=== PATIENT | male | born 1970 | race Caucasian/White ===

== ENCOUNTER → 2017-06-10 | Outpatient (CLI) | payer OTHER ==
[~2017-06-10] MED LIST: ALDACTONE 25MG25 M1 PO; BACTRIM DS 8001 TAB PO; PREDNISONE20 MG PO; PRILOSEC 20MG20 MG PO; PRINIVIL10 MG PO; PRINIVIL20 MG PO; ZOFRAN8 MG PO; ZYLOPRIM 300MG300 MG PO
== END ==
LOC: COL.RAD 09:37
DX: C85.90 Non-Hodgkin lymphoma, unspecified, unspecified site (principal)
CPT/HCPCS: Q9967

== ENCOUNTER → 2017-09-09 | Outpatient (CLI) | payer OTHER | LOC: COL.RAD 08:24 | DX: I77.810 Thoracic aortic ectasia (principal); N28.89 Other specified disorders of kidney and ureter; Z98.890 Other specified postprocedural states | CPT/HCPCS: Q9967 ==

== ENCOUNTER 2018-07-19 18:58 | Emergency (ER) | payer OTHER ==
[~2018-07-19] VITALS: Ht 193 cm; Wt 113.6 kg
[2018-07-19 19:04] VITALS: TEMP 97.4
[2018-07-19 19:41] LABS: BASO % 0.4 % (0.0-2.0); EOS % 0.5 % (0-4.0); GRAN # 5.5 (1.4-6.5); GRAN % 69.8 % (42.2-75.2); HEMATOCRIT 43.9 % (42.0-52.0); HEMOGLOBIN 15.1 g/dl (13.5-18.0); LYMPH # 1.7 (1.2-3.4); LYMPH % 21.6 % (20.0-51.0); MEAN CELL VOLUME 84 fl (80.0-100.0); MEAN CORPUSCULAR HEMOGLOBIN 29 pg (27.0-31.0); MEAN CORPUSCULAR HGB CONC 34 g/dl (33.0-37.0); MEAN PLATELET VOLUME 9.6 fl (7.4-10.4); MONO # 0.6 (0.1-0.6); MONO % 7.6 % (1.7-9.3); PLATELET COUNT 198 K/mm3 (130-400); REDCELL DISTRIBUTION WIDTH-CV 13.2 % (11.5-14.5)
[2018-07-19 19:48] LABS: ALANINE AMINOTRANSFERASE 52 U/L (21-72); ALBUMIN 4.5 gm/dL (3.5-5.0); ALKALINE PHOSPHATASE 92 U/L (50-136); ANION GAP 15 mmol/L (7-16); AST,SGOT 33 U/L (15-37); BILIRUBIN,TOTAL 0.4 mg/dL (0.0-1.0); BLOOD UREA NITROGEN 21 mg/dL (9-20); CALCIUM 9.4 mg/dL (8.4-10.2); CARBON DIOXIDE 22 mmol/L (22-30); CHLORIDE 101 mmol/L (98-107); CREATININE, serum 1.36 mg/dL (0.66-1.25); GLUCOSE 90 mg/dL (74-106); POTASSIUM 3.5 mmol/L (3.4-5.0); SODIUM 138 mmol/L (137-145)
[2018-07-19 19:59] LABS: LIPASE 126 U/L (23-300); TOTAL PROTEIN 7.5 gm/dL (6.4-8.2); TROPONIN-I < 0.012 ng/mL (0.000-0.034)
[2018-07-19] MEDS ORDERED: TOPROL XL 25MG25 MG PO (22:50)
[2018-07-19 23:24] VITALS: BP 136/101; PULSE 58
== END 2018-07-19 23:25 | disposition home or self-care (01) ==
LOC: COL.ER 18:58
PROVIDERS: Emergency Medicine
DX: I10 Essential (primary) hypertension (principal); R07.9 Chest pain, unspecified; Z98.890 Other specified postprocedural states
CPT/HCPCS: J7030; J7040

== ENCOUNTER → 2019-11-19 | Outpatient (CLI) | payer OTHER ==
[~2019-11-19] MED LIST changes: +FLEXERIL 1010 MG/TAB PO; +TOPROL XL 25MG25 MG PO
== END ==
LOC: COL.RAD 07:12
DX: Z01.812 Encounter for preprocedural laboratory examination (principal); C83.38 Diffuse large B-cell lymphoma, lymph nodes of multiple sites
CPT/HCPCS: Q9967

== ENCOUNTER → 2019-11-20 | Outpatient (CLI) | payer OTHER ==
[~2019-11-20] VITALS: Ht 193 cm; Wt 112.7 kg
[2019-11-20] VITALS (11 sets, daily range): BP systolic 114–139; BP diastolic 69–96; PULSE 71–93
--- NOTE | 2019-11-20 11:35 | NUR ---
PT TAKEN TO CT TABLE AND PLACED INTO POSITION. MONITORING EQUIPMENT PLACED. IMAGES DONE AND SENT
--- NOTE | 2019-11-20 11:55 | NUR ---
PT DOING WELL. NO PAIN OR DIFFICULTIES
--- NOTE | 2019-11-20 12:00 | NUR ---
PROCEDURE IS DONE. SITE IS CDI. DRESSING IN PLACE.
--- NOTE | 2019-11-20 13:47 | NUR ---
PT TAKEN IN WHEELCHAIR TO POV. PT LEAVES
== END ==
LOC: COL.RAD 09:19
DX: C83.38 Diffuse large B-cell lymphoma, lymph nodes of multiple sites (principal)

== ENCOUNTER 2019-12-02 19:46 | Inpatient (IN) | payer OTHER ==
[~2019-12-02] VITALS: Ht 193 cm; Wt 117.7 kg
[2019-12-02 20:50] LABS: HEMATOCRIT 40.9 % (42.0-52.0); HEMOGLOBIN 13.6 g/dl (13.5-18.0); MEAN CELL VOLUME 85 fl (80.0-100.0); MEAN CORPUSCULAR HEMOGLOBIN 28 pg (27.0-31.0); MEAN CORPUSCULAR HGB CONC 33 g/dl (33.0-37.0); MEAN PLATELET VOLUME 9.4 fl (7.4-10.4); PLATELET COUNT 257 K/mm3 (130-400); RED BLOOD COUNT 4.84 M/mm3 (4.20-5.60); REDCELL DISTRIBUTION WIDTH-CV 13.7 % (11.5-14.5)
[2019-12-02 20:59] LABS: ALBUMIN 3.6 gm/dL (3.5-5.0); BILIRUBIN,TOTAL 0.4 mg/dL (0.0-1.0); C-REACTIVE PROTEIN 2.5 mg/dL (0.0-0.9); CALCIUM 8.9 mg/dL (8.4-10.2); CREATININE, serum 1.12 (0.66-1.25); TOTAL PROTEIN 6.1 gm/dL (6.4-8.2)
[2019-12-02 21:37] LABS: EOSINOPHIL 1 % (0-4); LYMPHOCYTE 5 % (20.0-51.0); MICROCYTOSIS 1+; NEUTROPHILS 89 % (42.0-75.2); PLATELET ESTIMATE NORMAL (NORMAL)
[2019-12-03] VITALS (14 sets, daily range): BP systolic 111–156; BP diastolic 51–94; PULSE 48–97; TEMP 97.8–98.4
--- NOTE | 2019-12-03 01:30 | NUR ---
Received report from MENA Rasheed from ED. Pt arrived to medical unit at approximately 0030 with family. Assessment complete. Verbal. Ambulatory. Alert and oriented. C/O abdominal pain that radiates to back, rate 4-5/10. Pt states 4/10 is tolerable. IV to RF intact, flushed, dressing CDI. Dilaudid INTERMEDIATE SCHOOL TEACHER pump set up and edcuated pt of use. PT verbalizes understanding. Needs met. Call light within reach. Tele monitor set up.
[2019-12-03] MEDS ORDERED: NORCO 325 MG-7.1 TAB PO (03:14)
--- NOTE | 2019-12-03 06:30 | NUR ---
Pt utilized WORKPLACE REHABILITATION OFFICER without any issue. Needs met. Call light within reach. Resp remained 14-19.
--- NOTE | 2019-12-03 07:05 | NUR ---
Report given to MENA Simmons.
[2019-12-03 07:38] LABS: HEMOGLOBIN 13.3 g/dl (13.5-18.0); MEAN CELL VOLUME 87 fl (80.0-100.0); MEAN CORPUSCULAR HEMOGLOBIN 28 pg (27.0-31.0); MEAN CORPUSCULAR HGB CONC 32 g/dl (33.0-37.0); MEAN PLATELET VOLUME 9.2 fl (7.4-10.4); PLATELET COUNT 226 K/mm3 (130-400); RED BLOOD COUNT 4.73 M/mm3 (4.20-5.60); REDCELL DISTRIBUTION WIDTH-CV 13.9 % (11.5-14.5)
[2019-12-03 07:50] LABS: ALBUMIN 3.6 gm/dL (3.5-5.0); BILIRUBIN,TOTAL 0.6 mg/dL (0.0-1.0); CALCIUM 8.8 mg/dL (8.4-10.2); CREATININE, serum 1.03 (0.66-1.25); POTASSIUM 5.6 mmol/L (3.4-5.0); TOTAL PROTEIN 6.4 gm/dL (6.4-8.2)
[2019-12-03 08:13] LABS: LYMPHOCYTE 4 % (20.0-51.0); NEUTROPHILS 96 % (42.0-75.2); PLATELET ESTIMATE NORMAL (NORMAL)
--- NOTE | 2019-12-03 09:55 | NUR ---
Pt assessment completed and charted. Pt A&O, independent in room. Pt on JEWEL FLAT SURFACER pump w/o complications, asking to see about dc'ing and switchign to PO pain meds. Currently denies pain at this time but "when I do have it, it's about 3-4". States pain is in abdomen and "feels like bloating". RFA IV w/ NS @ 125ml/hr running w/o complications. Pulses strong bilaterally. Pt denies chest pain, dizziness, SOB, N/V/D. Denies BM. Pt on room air. LS clear. No other concerns expressed at this time.
--- NOTE | 2019-12-03 13:00 | NUR ---
Pt CARD PLAYER pump dc'd. remaining dilaudid wasted. Pt received Novolin and dextrose per MAR, one time, K+ 5.6, EKG completed. Pt rating pain at 0 at this time. BS checked prior to dextrose admin, 128. No other concerns expressed.
[2019-12-03 13:33] LABS: PROTHROMBIN TIME 11.4 SECONDS (9.7-12.8)
--- NOTE | 2019-12-03 13:42 | NUR ---
SW met with the patient to discuss discharge plan. The patient lives alone outside of [place]. He reports independence with ADLs and does not have any DME. The patient's PCP is Dr. Anjelica Slater and he receives his medications at [facility]. He reports no difficulties obtaining his meds. The patient does not have advanced directives in EMR, but he states that he does have them completed. He states that his brother, Josse Olivera (ph#[phone]), is his DPOA-HC. The patient plans to return home upon discharge. No additional needs at this time.
[2019-12-03 13:43] LABS: URIC ACID 4.8 mg/dL (3.5-8.5)
--- NOTE | 2019-12-03 16:30 | NUR ---
Pt requesting pain medication. Received 1 tab Laporte, PRN. Rating current pain at 1-2/10, not intolerable but "doesn't want to wait until the pain gets to 9". BS rechecked, 127. Pt ambulating in halls w/o complications. Fluids dc'd, no other concerns.
--- NOTE | 2019-12-03 17:24 | NUR ---
Pt requesting something to help aide in having BM, LORNA Stevenson notified. Pt showered and is ambulating halls w/ family at side.
--- NOTE | 2019-12-03 19:10 | NUR ---
Seen patient awake on bed. Alert and oriented. With INT on right forearm. Patient denies any pain. He is also aware on his procedures tomorrow.
[2019-12-04] VITALS (11 sets, daily range): BP systolic 136–164; BP diastolic 73–100; PULSE 46–96; TEMP 97.4–98
--- NOTE | 2019-12-04 03:00 | NUR ---
Patient complains of pain on IV site while flushing with saline. Reinserted IV on right hand with G22.
--- NOTE | 2019-12-04 06:35 | NUR ---
Patient verbalized having bowel movement already. Not in pain the whole night. Will endorse to day shift nurse.
--- NOTE | 2019-12-04 07:32 | NUR ---
SPOKE TO PT'S NURSE AND REQESTED THEY GET THE CONSENT SIGNED. PT IS NPO.
[2019-12-04 07:46] LABS: HEMOGLOBIN 13.2 g/dl (13.5-18.0); MEAN CELL VOLUME 86 fl (80.0-100.0); MEAN CORPUSCULAR HEMOGLOBIN 28 pg (27.0-31.0); MEAN CORPUSCULAR HGB CONC 33 g/dl (33.0-37.0); MEAN PLATELET VOLUME 9.4 fl (7.4-10.4); PLATELET COUNT 255 K/mm3 (130-400); RED BLOOD COUNT 4.68 M/mm3 (4.20-5.60)
[2019-12-04 08:00] LABS: CALCIUM 9.1 mg/dL (8.4-10.2); CREATININE, serum 0.92 (0.66-1.25); POTASSIUM 4.7 mmol/L (3.4-5.0)
--- NOTE | 2019-12-04 09:44 | NUR ---
Consent signed for needle guided biopsy and maircruz cath placement. Pt has been NPO since midnight. Pt denies pain at this time. POC discussed and all questions answered. No further needs at this time.
[2019-12-04 09:56] LABS: BAND 2 % (0-10); LYMPHOCYTE 1 % (20.0-51.0); NEUTROPHILS 96 % (42.0-75.2); NUCLEATED RED BLOOD CELL 1 (0-6); PLATELET ESTIMATE NORMAL (NORMAL); TOXIC GRANULATION PRESENT
--- NOTE | 2019-12-04 10:23 | NUR ---
Initial visit; Patient thanked Home Restoration Service Supervisor for stopping by and wishing him well and offering God's blessings.
--- NOTE | 2019-12-04 11:08 | NUR ---
Pt assessment completed and charted, morning medications administered per JAN. Pt A&O, independent in room. Pt refused miralax this morning, stated he had a BM last night. Pt to have maricruz cath procedure and needle biopsy today, all questions answered, consent signed. RH INT IV fluhses w/o complications. pt on room air, breathing is even and unlabored, denies SOB. Heart RRR. pt denies dizziness, N/V/D, palpitations. pt denies abdominal pain, doesn't require pain medication at this time. POC discussed. No other concerns.
[2019-12-04] MEDS ORDERED: PREDNISONE20 MG PO (12:15)
--- NOTE | 2019-12-04 12:45 | NUR ---
Pt down for biopsy procedure at this time.
--- NOTE | 2019-12-04 13:33 | NUR ---
PT WAS GIVEN 50 MCG FENTANYL IVSP FOR GRIMACING
--- NOTE | 2019-12-04 13:40 | NUR ---
PROCEDURE COMPLETED. REPORT TO HOLLIS, FLOOR NURSE. PT TAKEN BY WHEELCHAIR TO ROOM. VSS, SITE CDI TO ABDOMEN. PT STATES HE FEELS FINE.
--- NOTE | 2019-12-04 13:50 | NUR ---
Pt back from biopsy procedure, A&O, states he has some minimal pain but otherwise doing ok. sitting on EOB, awaiting for port placement.
--- NOTE | 2019-12-04 13:57 | NUR ---
1315PT WAS BROUGHT INTO CT ROOM AND PLACED INTO POSITION. MONITORING EQUIPMENT PLACED. IMAGES TAKEN AND SENT.
--- NOTE | 2019-12-04 14:02 | NUR ---
SPECIMEN TAKEN TO LAB.
--- NOTE | 2019-12-04 14:19 | NUR ---
Pt down for potr placement procedure at this time.
--- NOTE | 2019-12-04 16:03 | NUR ---
Pt back from port placement. Pt has rt side port placed, site is CDI. Pt also had CT guided biopsy to the abdomen prior to port placement. Site CDI. Pt is having some abdominal pain, states it started when he got down to OR for port procedure, unable to rate pain at this time. Pt is refusing/denying need for pain medication at this time, states he thinks "everything has just hit at once and wearing off", would like to wait it out and see. VS monitoring in progress, slightly tachy HR, satting at 99%, increase in BP at 155 systolic, pt unable to sit very still. SBP taken again, down to 144. Pt laying/resting in bed at this time. Labs and Abd xray to be completed. Pt requesting water and ice cream, tolerating well. Ambulating in room w/o dizziness or SOB. Will continue to monitor.
[2019-12-04 16:06] LABS: HEMATOCRIT 41.5 % (42.0-52.0); HEMOGLOBIN 13.5 g/dl (13.5-18.0); MEAN CELL VOLUME 86 fl (80.0-100.0); MEAN CORPUSCULAR HEMOGLOBIN 28 pg (27.0-31.0); MEAN CORPUSCULAR HGB CONC 33 g/dl (33.0-37.0); PLATELET COUNT 275 K/mm3 (130-400); RED BLOOD COUNT 4.84 M/mm3 (4.20-5.60); REDCELL DISTRIBUTION WIDTH-CV 14.1 % (11.5-14.5)
--- NOTE | 2019-12-04 16:15 | NUR ---
Pt laying in bed, SBP improving. pt denies "pain", states he is "having more discomfort, which is to be expected". Will continue to monitor and get an OK from Dr. Merlos prior to planned discharge.
[2019-12-04 16:25] LABS: CREATININE, serum 0.91 (0.66-1.25)
--- NOTE | 2019-12-04 16:40 | NUR ---
Critical WBC of 23.7 called from lab, called to LORNA Stevenson.
--- NOTE | 2019-12-04 17:23 | NUR ---
Pt up ambulating in [place]iver[place], rating abdominal pain "5-6 but not intolerable". Requesting pain medication, administered 2 Lerna tab PRN per JAN. Discussed w/ LORNA Stevenson, would like to get an OK from Dr. Merlos in regards to KUB prior to discharge. Dr. Merlos contacted, will look at KUB and get back to us. Pt ok w/ discharging as long as nothing showed on xray.
--- NOTE | 2019-12-04 17:45 | NUR ---
Dr. Merlso gave ok for pt to discharge. Elva contacted and agreed. Pt denied need for pain medication prescription.
--- NOTE | 2019-12-04 18:24 | NUR ---
Pt discharged. Discharge instructions discussed and reviewed w/ patient who verbalized understanding. All questions answered. RH INT IV dc'd w/o complications. No other concerns expressed.
== END 2019-12-04 18:26 | disposition home or self-care (01) | DRG 854 ==
LOC: COL.ER 19:46 → MEDICAL 23:00
PROVIDERS: Emergency Medicine; Internal Medicine; Nurse Practitioner Family; Physician Assistant; Surgery; ADMIT Hospitalist
PROC: 02HV33Z Insertion of Infusion Device into Superior Vena Cava, Percutaneous Approach (ICD-10-PCS; 2019-12-04)
PROC: 0JH60WZ Insertion of Totally Implantable Vascular Access Device into Chest Subcutaneous Tissue and Fascia, Open Approach (ICD-10-PCS; principal; 2019-12-04 14:30)
DX: A41.9 Sepsis, unspecified organism (principal); C85.83 Other specified types of non-Hodgkin lymphoma, intra-abdominal lymph nodes; K56.7 Ileus, unspecified; C85.90 Non-Hodgkin lymphoma, unspecified, unspecified site; I87.1 Compression of vein; R65.20 Severe sepsis without septic shock; I10 Essential (primary) hypertension; K52.9 Noninfective gastroenteritis and colitis, unspecified; E87.5 Hyperkalemia; R55 Syncope and collapse; G47.30 Sleep apnea, unspecified; Z87.891 Personal history of nicotine dependence
CPT/HCPCS: 99239; A4216; C1788; J0690; J0696; J1170; J1644; J1815; J1885; J2060; J2250; J2405; J2704; J2930; J3010; J7030; J7512; Q9967

== ENCOUNTER 2020-01-24 09:02 | Observation (INO) | payer OTHER ==
[~2020-01-24] VITALS: Ht 193 cm; Wt 117.9 kg
[~2020-01-24 09:02] MED LIST changes: +NORCO 325 MG-7.1 TAB PO
[2020-01-24 09:48] LABS: COLLECTION METHOD CLEAN CATCH
[2020-01-24 10:03] LABS: MUCOUS Present /lpf; PH 5 (5-8); SQUAMOUS EPITHELIAL None Seen /hpf; URINE APPEARANCE Clear; URINE BACTERIA None Seen /hpf; URINE BILIRUBIN Negative (NEGATIVE); URINE BLOOD Negative (NEGATIVE); URINE COLOR Yellow; URINE GLUCOSE Negative (NEGATIVE); URINE KETONE Trace (NEGATIVE); URINE LEUKOCYTE ESTERASE Negative (NEGATIVE); URINE NITRATE Negative (NEGATIVE); URINE PROTEIN(semi-quant) Negative (NEGATIVE); URINE RBC 0-2 /hpf; URINE UROBILINOGEN Negative (NEGATIVE)
[2020-01-24 10:15] LABS: BASO # 0.1 (0.0-0.2); BASO % 0.4 % (0.0-2.0); EOS % 0.1 % (0-4.0); GRAN # 13.7 (1.4-6.5); GRAN % 87.5 % (42.2-75.2); HEMOGLOBIN 10.2 g/dl (13.5-18.0); LYMPH # 0.7 (1.2-3.4); LYMPH % 4.7 % (20.0-51.0); MEAN CELL VOLUME 81 fl (80.0-100.0); MEAN CORPUSCULAR HEMOGLOBIN 27 pg (27.0-31.0); MEAN CORPUSCULAR HGB CONC 34 g/dl (33.0-37.0); MEAN PLATELET VOLUME 9.3 fl (7.4-10.4); MONO % 6.3 % (1.7-9.3); PLATELET COUNT 213 K/mm3 (130-400); RED BLOOD COUNT 3.76 M/mm3 (4.20-5.60); REDCELL DISTRIBUTION WIDTH-CV 16.2 % (11.5-14.5)
[2020-01-24 10:18] LABS: HEMATOCRIT 30.3 % (42.0-52.0)
[2020-01-24 10:25] LABS: ALBUMIN 4.2 gm/dL (3.5-5.0); BILIRUBIN,TOTAL 0.7 mg/dL (0.0-1.0); CALCIUM 9.6 mg/dL (8.4-10.2); CREATININE, serum 1.03 (0.66-1.25); POTASSIUM 4.1 mmol/L (3.4-5.0); TOTAL PROTEIN 7.3 gm/dL (6.4-8.2)
[2020-01-24 10:37] LABS: C-REACTIVE PROTEIN 12.5 mg/dL (0.0-0.9)
[2020-01-24] MEDS ORDERED: PRILOTC (15:47)
[2020-01-24] MEDS ORDERED: COLACE 100100 MG/CAP PO (15:48)
[2020-01-24] MEDS ORDERED: MIRALAX PA17 GM/Dose PO (15:50)
[2020-01-24 17:03] VITALS: BP 149/85; PULSE 69; TEMP 98
[2020-01-24 19:57] VITALS: BP 140/87; PULSE 87; TEMP 98.5
[2020-01-24 23:15] VITALS: BP 148/94; PULSE 77; TEMP 98.3
[2020-01-25 04:23] VITALS: BP 145/96; PULSE 101; TEMP 98.5
--- NOTE | 2020-01-25 05:46 | NUR ---
PT MEDICATED THROUGH THE NIGHT WITH PERCOCET AND DILAUDID FOR ABDOMINAL DISCOMFORT. ACTIVE BOWEL TONES. PT ADMIN. MIRALAX PER REQUEST. PT AMBULATED IN REESE.
[2020-01-25 06:39] LABS: CREATININE, serum 0.87 (0.66-1.25); MEAN CELL VOLUME 84 fl (80.0-100.0); MEAN CORPUSCULAR HGB CONC 32 g/dl (33.0-37.0); MEAN PLATELET VOLUME 9.1 fl (7.4-10.4); PLATELET COUNT 187 K/mm3 (130-400); POTASSIUM 4.1 mmol/L (3.4-5.0); RED BLOOD COUNT 3.46 M/mm3 (4.20-5.60); REDCELL DISTRIBUTION WIDTH-CV 16.2 % (11.5-14.5)
[2020-01-25 06:43] LABS: HEMATOCRIT 29.1 % (42.0-52.0); HEMOGLOBIN 9.4 g/dl (13.5-18.0); MEAN CORPUSCULAR HEMOGLOBIN 27 pg (27.0-31.0)
[2020-01-25 06:56] LABS: BAND 7 % (0-10); LYMPHOCYTE 7 % (20.0-51.0); METAMYELOCYTE 1 % (0-0); NEUTROPHILS 83 % (42.0-75.2); PLATELET ESTIMATE NORMAL (NORMAL)
--- NOTE | 2020-01-25 07:28 | NUR ---
DR. BLACKWELL CALLED REGARDING CONSULT. MESSAGE LEFT ON CELLPHONE.
[2020-01-25 07:34] VITALS: BP 140/101; PULSE 99; TEMP 98.9
--- NOTE | 2020-01-25 08:43 | NUR ---
Pt awake and alert upon entry, no C/O pain at this time, talkative, shift assessments complete, left Pt call light in reach, bed in lowest position.
--- NOTE | 2020-01-25 10:00 | NUR ---
SW met with the patient to discuss discharge plan. The patient lives alone in [place]. He reports that his ex- (Cintia Olivera, ph#[phone]) and daughter live in [place]. He reports independence with ADLs and has a CPAP. The patient's PCP is Dr. Anjelica Slater and he receives his medications at [facility]. He reports no difficulties obtaining his meds. The patient does not have advanced directives in EMR, but he states that he does have them completed. He states that his DPOA-HC is his ex- and brother (Josse). The patient plans to return home upon discharge. No additional needs at this time.
[2020-01-25 12:05] VITALS: BP 142/97; PULSE 104; TEMP 98.8
--- NOTE | 2020-01-25 12:09 | NUR ---
First visit from the manager product marketing. No needs right now.
[2020-01-25 17:19] VITALS: BP 138/100; PULSE 85; TEMP 99.7
--- NOTE | 2020-01-25 18:34 | NUR ---
Pt resting in the room today, has C/O pain having a hard time keeping good pain control on the oral medications, oral pain medications changed from Q6H to Q4H to get better control. Pt talkative and appropriate. VS have remained stable.
--- NOTE | 2020-01-25 19:45 | NUR ---
REQUESTS PORT BE UNACCESSED. WILL NOTIFY PROVIDER.
[2020-01-25 21:50] VITALS: BP 112/68; PULSE 94; TEMP 100.4
[2020-01-26 00:37] VITALS: BP 130/89; PULSE 93; TEMP 99.1
[2020-01-26 04:20] VITALS: BP 111/71; PULSE 80; TEMP 98.2
[2020-01-26 07:40] VITALS: BP 129/92; PULSE 104; TEMP 98.9
--- NOTE | 2020-01-26 08:58 | NUR ---
Pt sitting in the recliner this morning, states that his pain is better controlled. Shift assessments complete, left Pt call light in reach.
--- NOTE | 2020-01-26 11:17 | NUR ---
Initial visit; Patient thanked Doll Surgeon for looking in on him and offering spiritual care, especially God's blessings.
[2020-01-26] MEDS ORDERED: OXAYDO5 MG PO (13:03)
[2020-01-26] MEDS ORDERED: TYLENOL 325MG325 MG PO (13:04)
--- NOTE | 2020-01-26 13:45 | NUR ---
Pt discharged to home, discussed discharge packet, Pt left ambulatory after signing discharge paperwork.
== END 2020-01-26 13:45 | disposition home or self-care (01) ==
LOC: COL.ER 09:02 → MEDICAL 14:22
PROVIDERS: Nurse Practitioner; ADMIT Family Medicine
DX: R10.30 Lower abdominal pain, unspecified (principal); C85.90 Non-Hodgkin lymphoma, unspecified, unspecified site; D72.829 Elevated white blood cell count, unspecified; I10 Essential (primary) hypertension; K59.00 Constipation, unspecified; K21.9 Gastro-esophageal reflux disease without esophagitis; Z79.899 Other long term (current) drug therapy; Z87.891 Personal history of nicotine dependence; G47.33 Obstructive sleep apnea (adult) (pediatric)
CPT/HCPCS: 99232-AI; 99239; G0378; J1170; J2405; J3010; J7030; Q9967

== ENCOUNTER 2021-03-25 14:16 | Observation (INO) | payer OTHER ==
[2021-03-25] VITALS (9 sets, daily range): BP systolic 107–124; BP diastolic 59–98; PULSE 65–89; TEMP 97.7–98.4
[~2021-03-25] VITALS: Ht 193 cm; Wt 113.6 kg
[~2021-03-25 14:16] MED LIST changes: +COLACE 100100 MG/CAP PO; +MIRALAX PA17 GM/Dose PO; +OXAYDO5 MG PO; +PRILOTC; +TYLENOL 325MG325 MG PO
[2021-03-25 14:53] LABS: HEMOGLOBIN 11.8 g/dl (13.5-18.0); MEAN CELL VOLUME 95 fl (80.0-100.0); MEAN CORPUSCULAR HEMOGLOBIN 32 pg (27.0-31.0); MEAN CORPUSCULAR HGB CONC 33 g/dl (33.0-37.0); MEAN PLATELET VOLUME 9.7 fl (7.4-10.4); PLATELET COUNT 127 K/mm3 (130-400); RED BLOOD COUNT 3.72 M/mm3 (4.20-5.60); REDCELL DISTRIBUTION WIDTH-CV 13.8 % (11.5-14.5)
[2021-03-25 14:56] LABS: HEMATOCRIT 35.5 % (42.0-52.0)
[2021-03-25 15:01] LABS: ALBUMIN 4.3 gm/dL (3.5-5.0); BILIRUBIN,TOTAL 0.7 mg/dL (0.0-1.0); C-REACTIVE PROTEIN 4.9 mg/dL (0.0-0.9); CALCIUM 9.5 mg/dL (8.4-10.2); CREATININE, serum 1.25 (0.66-1.25); POTASSIUM 3.9 mmol/L (3.4-5.0); TOTAL PROTEIN 6.8 gm/dL (6.4-8.2)
[2021-03-25 15:27] LABS: BAND 13 % (0-10); LYMPHOCYTE 3 % (20.0-51.0); NEUTROPHILS 84 % (42.0-75.2); PLATELET ESTIMATE NORMAL (NORMAL)
[2021-03-25] MEDS ORDERED: ZOVIRAX 200MG200 MG PO (15:57)
[2021-03-25] MEDS ORDERED: BACTRIM 400 MG-1 TAB PO (15:57)
--- NOTE | 2021-03-25 18:35 | NUR ---
Patient is back from surgery. He is alert and oriented. He is ordering dinner. Denies pain and nausea at this time. Oriented patient to room. Explained how to order food. Explained the plan for post-op care. Silke SAN is also at bedside and will be taking over at this time. No other changes at this time. Call light within reach.
[2021-03-26 03:44] VITALS: BP 110/68; PULSE 56; TEMP 97.8
--- NOTE | 2021-03-26 05:21 | NUR ---
PATIENT HAS DENIED PAIN SINCE ARRIVING TO THE FLOOR. V/S STABLE, RT PROVIDED HIM A CPAP, AND PATIENT HAS RESTED WELL THROUGHOUT THE NIGHT. NO NEW ISSUES NOTED OR REPORTED BY PATIENT. LAP SITES CLEAN, DRY, AND INTACT.
[2021-03-26 06:02] LABS: BASO % 0.1 % (0.0-2.0); GRAN # 7.2 (1.4-6.5); GRAN % 95.3 % (42.2-75.2); HEMOGLOBIN 10.6 g/dl (13.5-18.0); LYMPH # 0.2 (1.2-3.4); LYMPH % 2.7 % (20.0-51.0); MEAN CELL VOLUME 96 fl (80.0-100.0); MEAN CORPUSCULAR HEMOGLOBIN 33 pg (27.0-31.0); MEAN CORPUSCULAR HGB CONC 34 g/dl (33.0-37.0); MEAN PLATELET VOLUME 9.7 fl (7.4-10.4); MONO # 0.1 (0.1-0.6); MONO % 1.6 % (1.7-9.3); PLATELET COUNT 101 K/mm3 (130-400); RED BLOOD COUNT 3.26 M/mm3 (4.20-5.60); REDCELL DISTRIBUTION WIDTH-CV 14.5 % (11.5-14.5)
[2021-03-26 06:05] LABS: HEMATOCRIT 31.3 % (42.0-52.0)
[2021-03-26 07:59] VITALS: BP 119/81; PULSE 56; TEMP 97.5
[2021-03-26] MEDS ORDERED: AMOXICILLIN 8751 TAB PO (10:45)
--- NOTE | 2021-03-26 11:30 | NUR ---
Patient is discharging home. Discharge instructions discussed with patient. No questions verbalized. Port access removed, heparinized before removal. Explained he needs to call Saturday for a follow up appointment with Dr Botello. He is aware he has prescription to crop picker at the pharmacy. All belongings packed up and sent with patient. Patient walked out with this nurse. Copies of discharge instructions sent with patient.
--- NOTE | 2021-03-26 12:24 | NUR ---
SW met with patient to complete intake. Patient provices that he lives in [place]. POC is Cintia [phone] and Josse [phone] Patient does not wish to appoint anyone as DPOA-HC at this time. Patient provides that he does not utilize DME and and is independent with ADL's. Patient provides that his PCP is Dr. Slater and his pharmacy is [facility]. Patient states that he has documentation of the individuals listed above are his DPOA-HC. Patient states that his plan his to return to his home up [place] and has not questions or concerns with doing so. SW will continue to follow.
== END 2021-03-26 11:30 | disposition home or self-care (01) ==
LOC: COL.ER 14:16 → SURG 15:50
PROVIDERS: Emergency Medicine; ADMIT Surgery
DX: K35.80 Unspecified acute appendicitis (principal); Z98.52 Vasectomy status; Z87.891 Personal history of nicotine dependence; G47.33 Obstructive sleep apnea (adult) (pediatric); I10 Essential (primary) hypertension; Z85.72 Personal history of non-Hodgkin lymphomas
CPT/HCPCS: G0378; J0330; J1100; J1170; J1885; J2405; J2543; J2704; J3010; J7030; Q9967